=== PATIENT | male | born 1980 | race Caucasian/White ===

== ENCOUNTER 2022-08-05 14:56 | Emergency (ER) | payer BC, OTHER ==
[~2022-08-05] VITALS: Ht 180.3 cm; Wt 81.8 kg
[~2022-08-05 14:56] MED LIST: NO HOME MEDS
[2022-08-05 14:58] VITALS: BP 138/90
[2022-08-05] MEDS ORDERED: proparacaine 0.5% ophthalmic drops 15ml RIGHTEYE ONE ×3 (16:55→17:00)
[2022-08-05] MEDS ORDERED: CIPR2.5D21 RIGHTEYE ×3 (17:09→17:37)
== END 2022-08-05 17:22 | disposition home or self-care (01) ==
LOC: ER 14:56
DX: S05.01XA Injury of conjunctiva and corneal abrasion without foreign body, right eye, initial encounter (principal); Z90.89 Acquired absence of other organs; Z98.890 Other specified postprocedural states; Z72.89 Other problems related to lifestyle; Z91.013 Allergy to seafood; Z79.899 Other long term (current) drug therapy; X58.XXXA Exposure to other specified factors, initial encounter; Y93.89 Activity, other specified; Y92.89 Other specified places as the place of occurrence of the external cause; Y99.8 Other external cause status
CPT/HCPCS: 99284